=== PATIENT | female | born 1980 | race Caucasian/White ===

== ENCOUNTER 2019-06-21 20:07 | Inpatient (IN) | payer SELFPAY ==
[2019-06-21 20:12] VITALS: BP 110/71; PULSE 112; RESP 18; TEMP 36.7; O2SAT 99; BMI 22.3
--- NOTE | 2019-06-21 20:28 | W.ED.ABDPA2 ---
HPI - Abdominal Pain General: Chief Complaint: Abdominal Pain Stated Complaint: lower left abd pain Time Seen by Provider: 06/21/19 20:24 Source: patient Mode of arrival: ambulatory Limitations: no limitations History of Present Illness: HPI narrative: 38-year-old female who states she has been having abdominal pain for the last month. States pain is sharp in nature and rates it a 9 out of 10. Her pain is in her left lower quadrant. She denies any vaginal bleeding. Patient denies any worsening or improving factors. MD elicited complaint: abdominal pain Onset (ago): day(s) Pain Consistency: constant Location: LLQ Severity: severe Quality: stabbing Radiation: none Migration to: no migration Exacerbating factors: nothing Relieving factors: nothing Associated Symptoms: Denies chills, diarrhea, dysuria, fever(s), nausea and vomiting Related Data: Date of Last Menstrual Period: 06/07/19 Review of Systems Const: Denies: fever, chills, body aches or change in appetite Eyes: Denies: blurry vision or eye discomfort ENMT: Denies: throat pain or dental pain Card: Denies: chest pain Resp: Denies: shortness of breath GI: Reports: abdominal pain; Denies: nausea, vomiting or diarrhea : Denies: painful urination Musc: Denies: neck pain or back pain Skin/Breast: Denies: rash Neuro: Denies: headache Psych: Denies: depression Herbert/Lymph: Denies: easy bruising All/Imm: Denies: hives PFSH ED PFSH: Social History Smoking and tobacco status: current every day smoker Female Reproductive History: Date of last menstrual period: 06/07/19 Physical Exam Const: COMMON NORMALS: no apparent distress, oriented x3 and healthy appearing HENMT: COMMON NORMALS: normocephalic and head/scalp atraumatic HEAD & SCALP: normocephalic and atraumatic Eye: COMMON NORMALS: PERRL and EOMs intact bilaterally PUPIL: Yes PERRL Neck/C-Spine: COMMON NORMALS: full ROM and supple Chest: COMMONS NORMALS: inspection of chest normal and palpation of chest normal Resp: COMMON NORMALS: normal respiratory effort, no retractions, no use of accessory muscles and clear to auscultation bilaterally AUSCULTATION: clear to auscultation bilaterally Cardio: COMMON NORMALS: regular rate, regular rhythm and no murmurs RATE: regular rate RHYTHM: regular rhythm GI: COMMON NORMALS: normal to inspection, nondistended, normoactive bowel sounds, non-tender and no masses PALPATION: Yes tender Details: LLQ Extremity: COMMON NORMALS: normal to inspection and full ROM Neuro: COMMON NORMALS: oriented x3, moves all extremities and no focal motor deficits Psych: COMMON NORMALS: mental status grossly normal, thought process normal and cooperative THOUGHT PROCESS: normal thought process Skin: COMMON NORMALS: no rashes or lesions noted and no wounds GENERAL SKIN EXAM: no rashes or lesions noted Course Vital Signs: Vital signs: Vital Signs Temperature 98.0 F 06/21/19 20:12 Pulse Rate 108 H 06/21/19 21:40 Respiratory Rate 16 06/21/19 21:40 Blood Pressure 108/94 06/21/19 21:40 Pulse Oximetry 95 06/21/19 21:40 MDM - Abdominal Pain MDM Narrative: Medical decision making narrative: Patient presents with large kidney stone affecting left kidney. I spoke to Dr. You about kidney stone and he will admit. Patient's pain is much improved. Patient does have a cystitis as well and will treat with Rocephin. Lab Data: Labs: Lab Results 06/21/19 06/21/19 06/21/19 Range/Units 20:26 20:26 20:26 WBC 12.8 H (4.0-10.0) 10^3/ uL RBC 5.27 (4.1-5.3) 10^6/u L Hgb 13.2 (11.5-15.3) g/dL Hct 44.3 (37.0-47.0) % MCV 84.1 (81-99) fL MCH 25.0 L (28.0-34.0) pg MCHC 29.8 L (30.0-36.0) g/dL RDW 14.9 (12.1-15.1) % Plt Count 389 (130-400) 10^3/c mm MPV 10.9 H (7.4-10.4) fL Neut % (Auto) 72.7 % Lymph % (Auto) 19.1 % [place] % (Auto) 4.0 % Eos % (Auto) 2.6 % Baso % (Auto) 1.1 % Neut # (Auto) 9.3 H (1.8-7.7) 10^3/u L Lymph # (Auto) 2.5 (0.8-4.8) 10^3/u L [place] # (Auto) 0.5 (0.2-0.9) 10^3/u L Eos # (Auto) 0.3 (0.0-0.8) 10^3/u L Baso # (Auto) 0.1 (0.0-0.1) 10^3/u L Nucleated RBC % (a uto) 0 % Nucleated RBCs # 0.0 /100WBC Sodium 134 L (136-145) mmol/L Potassium 4.5 (3.5-5.1) mmol/L Chloride 99 (98-107) mmol/L Carbon Dioxide 22 (22-29) mmol/L Anion Gap 17.5 (5-19) BUN 13 (6-20) mg/dL Creatinine 1.0 H (0.5-0.9) mg/dL GFR Calculation 62.1 L (90-130) mL/min Glucose 164 H (65-115) mg/dL Calculated Osmolal ity 278 L (285-295) mOsm/k g Calcium 10.1 (8.5-10.5) mg/dL Total Bilirubin 0.4 (0.15-1.2) mg/dL AST 57 H (0-32) U/L ALT 297 H (0-33) U/L Alkaline Phosphata se 78 (35-105) IU/L Total Protein 8.0 (6.6-8.7) g/dL Albumin 4.1 (3.5-5.2) g/dL Globulin 3.9 (1.3-4.6) g/dL Lipase 28 (13-60) U/L Ser , Colleen i-Qnt 0.50 mIU/mL Urine Color (Yellow) Urine Appearance (CLEAR) Urine pH (5-7) Ur Specific Gravit y (1.005-1.030) Urine Protein (Negative) Urine Glucose (UA) (Normal) Urine Ketones (Negative) Urine Blood (Negative) Urine Nitrate (Negative) Urine Bilirubin (NEGATIVE) Prot Sulfosalicyli c Acd (Negative) Urine Urobilinogen (Negative) mg/dL Ur Leukocyte Amparo ase (Negative) Urine RBC (0-2) /hpf Urine WBC (0-5) /hpf Ur Squamous Epith Cells (0-5) Urine Bacteria (NONE) 06/21/19 Range/Units 21:35 WBC (4.0-10.0) 10^3/ uL RBC (4.1-5.3) 10^6/u L Hgb (11.5-15.3) g/dL Hct (37.0-47.0) % MCV (81-99) fL MCH (28.0-34.0) pg MCHC (30.0-36.0) g/dL RDW (12.1-15.1) % Plt Count (130-400) 10^3/c mm MPV (7.4-10.4) fL Neut % (Auto) % Lymph % (Auto) % [place] % (Auto) % Eos % (Auto) % Baso % (Auto) % Neut # (Auto) (1.8-7.7) 10^3/u L Lymph # (Auto) (0.8-4.8) 10^3/u L [place] # (Auto) (0.2-0.9) 10^3/u L Eos # (Auto) (0.0-0.8) 10^3/u L Baso # (Auto) (0.0-0.1) 10^3/u L Nucleated RBC % (a uto) % Nucleated RBCs # /100WBC Sodium (136-145) mmol/L Potassium (3.5-5.1) mmol/L Chloride (98-107) mmol/L Carbon Dioxide (22-29) mmol/L Anion Gap (5-19) BUN (6-20) mg/dL Creatinine (0.5-0.9) mg/dL GFR Calculation (90-130) mL/min Glucose (65-115) mg/dL Calculated Osmolal ity (285-295) mOsm/k g Calcium (8.5-10.5) mg/dL Total Bilirubin (0.15-1.2) mg/dL AST (0-32) U/L ALT (0-33) U/L Alkaline Phosphata se (35-105) IU/L Total Protein (6.6-8.7) g/dL Albumin (3.5-5.2) g/dL Globulin (1.3-4.6) g/dL Lipase (13-60) U/L Ser , Colleen i-Qnt mIU/mL Urine Color Straw (Yellow) Urine Appearance Cloudy (CLEAR) Urine pH 9 H (5-7) Ur Specific Gravit y 1.010 (1.005-1.030) Urine Protein Neg (Negative) Urine Glucose (UA) Norm (Normal) Urine Ketones Negative (Negative) Urine Blood 2+ H (Negative) Urine Nitrate Positive H (Negative) Urine Bilirubin Neg (NEGATIVE) Prot Sulfosalicyli c Acd Positive (Negative) Urine Urobilinogen Norm (Negative) mg/dL Ur Leukocyte Amparo ase 2+ H (Negative) Urine RBC 5-10 H (0-2) /hpf Urine WBC Too numerous to c nt H (0-5) /hpf Ur Squamous Epith Cells 5-10 H (0-5) Urine Bacteria 2+ H (NONE) Imaging Data ^: CT Abd/Pel: Radiologist's impression: [place] [address] CT Scan Report Signed Patient: Kalani Son Unit #: [id number] : [id number] Age/Sex: 38 / F ADM Date: 06/21/19 Loc: ER Room/Bed: Attending Dr: Ordering Provider/Ordering MD: Jacky Colbert MD Date of Service: 06/21/19 Procedure(s): CT abdomen pelvis w con* [id number] Accession Number(s): [id number] Report Number: [id number] PROCEDURE INFORMATION: Exam: CT Abdomen And Pelvis With Contrast Exam date and time: 06/21/2019 8:39 PM Age: 38 years old Clinical indication: Abdominal pain; Localized; Left lower quadrant (llq); Patient HX: C/O llq pain x months - worsening tonight - HX of ovarian cysts; Additional info: Abd pain TECHNIQUE: Imaging protocol: Computed tomography of the abdomen and pelvis with intravenous contrast. Total DLP: 521.77 mGy-cm Radiation optimization: All CT scans at this facility use at least one of these dose optimization techniques: automated exposure control; mA and/or kV adjustment per patient size (includes targeted exams where dose is matched to clinical indication); or iterative reconstruction. Contrast material: OMNI 300; Contrast volume: 95 ml; Contrast route: 20G; COMPARISON: No relevant prior studies available. FINDINGS: Lungs: Limited assessment lung bases without evidence for active cardiopulmonary process. Liver: Unremarkable. No mass. Gallbladder and bile ducts: Normal. No calcified stones. No ductal dilation. Pancreas: Normal. No ductal dilation. Spleen: Normal. No splenomegaly. Adrenals: Normal. No mass. Kidneys and ureters: Large left ureteropelvic junction stone measuring 16 mm x 7 mm x 8 mm. Duplex left renal collecting system with the stone positioned to result in partial obstruction of both the superior and inferior pole moiety. Resulting mild pelvocaliectasis of both the superior and inferior pole moiety. Right kidney without nephrolithiasis. No visible ureterolithiasis. No visible bladder stone. Stomach and bowel: Nonobstructive bowel pattern. No visible evidence of diverticulitis or significant diverticulosis coli. No visible adynamic or reactive ileus. Appendix: No evidence of appendicitis. Intraperitoneal space: Tiny amount of free fluid in the cul-de-sac believed physiologic. Doubt of clinical significance. Vasculature: The abdominal aorta is nonaneurysmal. Lymph nodes: No evidence for mesenteritis/panniculitis or mesenteric lymphadenitis/lymphadenopathy. Bladder: See Kidneys and ureters finding. Reproductive: Unremarkable as visualized. Bones/joints: Unremarkable. No acute fracture. Soft tissues: Unremarkable. CT/CT abdomen pelvis w con* [id number] IMPRESSION: 1. Large left ureteropelvic junction stone measuring 16 mm x 7 mm x 8 mm resulting in mild pelvicaliectasis of both the superior and inferior pole moiety complex in the left renal duplex collecting system. 2. Tiny amount of free fluid in the cul-de-sac that is considered physiologic. 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
[2019-06-21 20:34] LABS: Basophils # 0.1 10^3/uL (0.0-0.1); Basophils % 1.1 %; Eosinophils # 0.3 10^3/uL (0.0-0.8); Eosinophils % 2.6 %; Hematocrit 44.3 % (37.0-47.0); Hemoglobin 13.2 g/dL (11.5-15.3); Lymphocytes # 2.5 10^3/uL (0.8-4.8); Lymphocytes % 19.1 %; Mean Corpuscular HGB Conc 29.8 g/dL (30.0-36.0); Mean Corpuscular Volume 84.1 fL (81-99); Mean Platelet Volume 10.9 fL (7.4-10.4); Monocytes # 0.5 10^3/uL (0.2-0.9); Neutrophils # 9.3 10^3/uL (1.8-7.7); Neutrophils % 72.7 %; Nucleated Red Blood Cells % 0 %; Platelet Count 389 10^3/cmm (130-400); Red Blood Count 5.27 10^6/uL (4.1-5.3); Red Cell Distribution Width 14.9 % (12.1-15.1); White Blood Count 12.8 10^3/uL (4.0-10.0)
[2019-06-21] MEDS: morphine 4 mg/mL SDV 1 mL IVP ×2 (20:52→22:07)
[2019-06-21] MEDS: LORazepam 2 mg/mL INJ 1 mL 1 MG IVP (20:53)
[2019-06-21 20:55] LABS: Alanine Aminotransferase 297 U/L (0-33); Albumin Level 4.1 g/dL (3.5-5.2); Alkaline Phosphatase 78 IU/L (35-105); Anion Gap 17.5 (5-19); Aspartate Amino Transferase 57 U/L (0-32); Blood Urea Nitrogen 13 mg/dL (6-20); Calcium 10.1 mg/dL (8.5-10.5); Carbon Dioxide 22 mmol/L (22-29); Chloride 99 mmol/L (98-107); Globulin 3.9 g/dL (1.3-4.6); Glomerular Filtration Rate 62.1 mL/min (90-130); Glucose 164 mg/dL (65-115); Lipase 28 U/L (13-60); Osmolality Calculated 278 mOsm/kg (285-295); Potassium 4.5 mmol/L (3.5-5.1); Sodium 134 mmol/L (136-145); Total Bilirubin 0.4 mg/dL (0.15-1.2)
[2019-06-21] MEDS: iohexol 300 mg/mL 100 mL Btl IV (21:20)
[2019-06-21 21:40] VITALS: BP 108/94; PULSE 108; RESP 16; O2SAT 95
[2019-06-21 22:04] LABS: Glucose Urine UA Norm (Normal); Protein Urine Neg (Negative); Urine Color Straw (Yellow); pH Urine 9 (5-7)
[2019-06-21 22:05] LABS: Bilirubin Urine Neg (NEGATIVE); Blood Urine 2+ (Negative); Ketones Urine Negative (Negative); Leukocyte Esterase Urine 2+ (Negative); Nitrate Urine Positive (Negative); Sulfosalicylic Acid Urine Positive (Negative); Urobilinogen Urine Norm (Negative)
[2019-06-21 22:06] LABS: Add Urine Microscopic? YES; Urine Appearance Cloudy (CLEAR); WBC Urine TOO NUMEROUS TO CNT /hpf (0-5)
[2019-06-21 22:07] VITALS: RESP 16
[2019-06-21 22:07] LABS: Add Urine Culture? Yes; Bacteria Urine 2+
[2019-06-21] MEDS: HYDROcodone-acetaminophen 7.5-325 mg Tablet 2 TAB PO (22:12)
--- NOTE | 2019-06-21 22:13 | PC.NURSE ---
per orders 2 Hydrocodone/Tyleno 7.5mg were given to the pt. to take at home
--- NOTE | 2019-06-21 22:27 | PM.HP ---
Providers/Chief Complaint Chief Complaint: lower left abd pain History of Present Illness Kalani Son is a 38 year old female admitted due to progressive left flank yesterday pain from a large (1.6x.8cm) LUPJ stone with mild obstructive changes. While she had no clinical picture of sepsis UA was positive for WBC and nitrites. Admitted for IV antibiotics with option for stent placement. Complicated by recent Meth usage for pain. Originally before her urinalysis was available she was planned to be discharged home with conservative management but once the urinary tract infection was identified plan was changed to admission. She reports that she has had off and on at times severe pain in the left flank since probably late February. No prior stones. Has had a history of urinary tract infections. Review of Systems Const: Denies: fever or chills Card: Denies: chest pain or palpitations Resp: Denies: shortness of breath or productive cough GI: Reports: abdominal pain, nausea and vomiting : Reports: other (left flank pain) Neuro: Denies: headache, numbness in extremities, weakness in extremities or changes in sensation Psych: Reports: anxiety and depression Endo: Denies: excessive urination or excessive thirst Herbert/Lymph: Denies: easy bruising or easy bleeding All/Imm: Denies: hives or throat swelling Medications/Allergies Allergies Allergy/AdvReac Type Severity Reaction Status Date / Time No Known Allergies Allergy Verified 06/21/19 20:30 PFSH Acute PFSH: Medical History Substance abuse Social History Smoking and tobacco status: current every day smoker Female Reproductive History: Date of last menstrual period: 06/07/19 Vitals/I&O/Wt Last Vital Signs Temp 98.0 F 06/21/19 20:12 Pulse 108 H 06/21/19 21:40 Resp 16 06/21/19 22:07 BP 108/94 06/21/19 21:40 Pulse Ox 95 06/21/19 21:40 Weight last 48 hrs Weight 130 lb Physical Exam Const: COMMON NORMALS: alert and well nourished GENERAL APPEARANCE: well kempt and well developed ORIENTATION/CONSCIOUSNESS: not confused HENMT: HEAD & SCALP: normocephalic and atraumatic Eye: COMMON NORMALS: conjunctivae normal and no scleral icterus Neck/C-Spine: COMMON NORMALS: full ROM GENERAL: Yes normal visual inspection Resp: COMMON NORMALS: normal respiratory effort EFFORT & INSPECTION: No labored and No actively coughing OTHER: No wheezes Cardio: RATE: regular rate RHYTHM: regular rhythm : BLADDER/KIDNEY EXAM: Yes bladder abnormal to palpation (Tender, nondistended) and Yes CVA tenderness on the left OTHER: Normal external female genitalia. Normal urethra urethral meatus. No obvious vaginal discharge or masses. Extremity: COMMON NORMALS: no clubbing, cyanosis or edema Neuro: COMMON NORMALS: no focal motor deficits SENSORIUM/ORIENTATION: Yes alert Psych: COMMON NORMALS: mental status grossly normal APPEARANCE: Yes grossly normal and Yes well kempt ATTITUDE: Yes engaged Skin: COMMON NORMALS: no jaundice GENERAL SKIN EXAM: no rashes or lesions noted Data : 06/22/19 06:16 06/22/19 06:16 Micro: UA: TNTC WBC CT Abd/Pel: I personally reviewed and interpreted this imaging study as follows: (See HPI) A&P Assessment and plan (1) Calculus of kidney: Status: Acute (2) Cystitis: Too numerous to count white cells, positive nitrites, some lower urinary tract symptoms but no septic symptoms. Status: Acute Attestations Medical Necessity Statement*: Admitted for management of severe pain, obstructing left stone, UTI with concern for potential of development of obstructive pyelonephritis. Expect that she will require urgent stenting on 06/22/2019 Coding Level of Care Code Acute Manager Field Service for [facility] Fwd Exam Comprehensive Diagnoses Calculus of kidney N20.0 Cystitis N30.90
--- NOTE | 2019-06-21 22:30 | PC.NURSE ---
pt. given a sandwitch tray for dinner
[2019-06-21 22:31] VITALS: BP 119/89; PULSE 115; RESP 16; O2SAT 95
[2019-06-21] MEDS: cefTRIAXone 1,000 MG in sodium chloride 0.9% (plus) 50 ML 100 MG IV (22:38)
[2019-06-21 23:06] VITALS: BP 115/74; PULSE 94; RESP 20; TEMP 36.5; O2SAT 96
[2019-06-21] MEDS: sodium chloride 0.9% 1,000 ML 100 ML IV (23:18)
[2019-06-22] VITALS (21 sets, daily range): BP systolic 94–110; BP diastolic 58–83; PULSE 70–98; RESP 12–20; TEMP 36.1–37.4; O2SAT 95–100
--- NOTE | 2019-06-22 | SCC_ITS ---
Procedure Done: 1. Cystoscopy, left retrograde ureteropyelogram 2. Left ureteral stent placement 20.8 seconds of fluoroscopic guidance, for a cumulative dose of 3.86 mGy, was provided to Dr. You by the radiology department. C-arm images of the abdomen were saved for the patient's permanent record. [facility]
--- NOTE | 2019-06-22 02:10 | PC.NURSE ---
pt made npo at midnight.
[2019-06-22 06:25] LABS: Basophils # 0.1 10^3/uL (0.0-0.1); Basophils % 1.1 %; Eosinophils # 0.4 10^3/uL (0.0-0.8); Eosinophils % 3.5 %; Hematocrit 41.8 % (37.0-47.0); Hemoglobin 12.3 g/dL (11.5-15.3); Lymphocytes # 2.3 10^3/uL (0.8-4.8); Lymphocytes % 20.4 %; Mean Corpuscular HGB Conc 29.4 g/dL (30.0-36.0); Mean Corpuscular Hemoglobin 24.5 pg (28.0-34.0); Mean Corpuscular Volume 83.3 fL (81-99); Mean Platelet Volume 10.9 fL (7.4-10.4); Monocytes # 0.9 10^3/uL (0.2-0.9); Monocytes % 7.5 %; Neutrophils # 7.6 10^3/uL (1.8-7.7); Neutrophils % 67.1 %; Nucleated Red Blood Cells % 0 %; Platelet Count 357 10^3/cmm (130-400); Red Blood Count 5.02 10^6/uL (4.1-5.3); Red Cell Distribution Width 14.9 % (12.1-15.1); White Blood Count 11.3 10^3/uL (4.0-10.0)
[2019-06-22 06:49] LABS: Anion Gap 14.5 (5-19); Blood Urea Nitrogen 12 mg/dL (6-20); Calcium 9.3 mg/dL (8.5-10.5); Carbon Dioxide 23 mmol/L (22-29); Chloride 104 mmol/L (98-107); Glomerular Filtration Rate 80.3 mL/min (90-130); Glucose 101 mg/dL (65-115); Osmolality Calculated 280 mOsm/kg (285-295); Potassium 4.5 mmol/L (3.5-5.1); Sodium 137 mmol/L (136-145)
[2019-06-22] MEDS: sodium chloride 0.9% 1,000 ML 100 ML IV ×2 (07:26→19:55)
[2019-06-22] MEDS: morphine 4 mg/mL SDV 1 mL IVP ×3 (07:42→22:51)
--- NOTE | 2019-06-22 07:48 | P.PN_ITS ---
Subjective Subjective: Interval history: Hospital day #2 for obstructing left renal calculus invasive urinary tract infection. No fever or chills overnight. No septic symptoms. Still having significant pain and discomfort. Reviewed in detail with her the findings and the reason for consideration for intervention with stent and then delayed ESWL. Primary concern is the potential for development of obstructive pyelonephritis. After detailed explanation we elected to proceed with stent placement today on the left as time available this afternoon. Vitals/I&O/Wt Last Vital Signs Temp 98.0 F 06/22/19 04:00 Pulse 88 06/22/19 04:00 Resp 18 06/22/19 07:42 BP 110/69 06/22/19 04:00 Pulse Ox 95 06/22/19 07:42 06/21/19 06/22/19 06/22/19 22:59 06:59 14:59 Intake Total 120 / 120 813.333 / 813.333 Output Total 270 / 270 Balance -150 / -150 813.333 / 813.333 Weight last 48 hrs Weight 130 lb Physical Exam Const: COMMON NORMALS: alert and well nourished GENERAL APPEARANCE: well kempt and well developed ORIENTATION/CONSCIOUSNESS: not confused Neck/C-Spine: COMMON NORMALS: full ROM GENERAL: Yes normal visual inspection Resp: COMMON NORMALS: normal respiratory effort EFFORT & INSPECTION: No labored and No actively coughing GI: COMMON NORMALS: soft to palpation INSPECTION: Yes normal to inspection PALPATION: Yes soft, Yes tender and No guarding Extremity: COMMON NORMALS: no clubbing, cyanosis or edema Neuro: SENSORIUM/ORIENTATION: Yes alert Psych: COMMON NORMALS: mental status grossly normal APPEARANCE: Yes grossly normal and Yes well kempt ATTITUDE: Yes calm and Yes engaged Skin: COMMON NORMALS: no rashes or lesions noted GENERAL SKIN EXAM: no rashes or lesions noted Data : 06/22/19 06:16 06/22/19 06:16 A&P Assessment and plan (1) Calculus of kidney: Symptomatic obstructing large left renal calculus invasive UTI but no evidence of obstructive pyelonephritis as of yet. We will plan for cystoscopy and stent placement later today. Status: Acute (2) Cystitis: Status: Acute Attestations Medical Necessity Statement*: Requires inpatient care for UTI and obstructing stone. Plan for urgent stent placement today. If does well from an infectious perspective postoperatively would look to discharge on 06/23/2019. 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
--- NOTE | 2019-06-22 09:59 | PC.CHAP ---
Pastoral Care Encounter/Spiritual Assessment Type of Contact [] Declined mica washer gluer visit [] Patient/Family/Request visit [] Outpatient visit [] Follow-up visit [] Physician referral [] Code/Alert [x] Routine visit [] Staff referral [] Actively dying [x] Patient sleeping [] Family support [] [] Out of room [] Palliative care [] [] Receiving care in room [] Pre-surgical visit [] Trauma [] Long length of stay [] ICU visit [] Other: Relational/Emotional Strength [] Patient feels connected with others/family/visitors/staff [] Distress [] Loneliness/isolation [] Abandonment Spirituality of Patient [] Person of Felicia [] Attends Pentecostalism of their Felicia [] Believes in Prayer [] Reads Bible or Catholic materials [] There are Spiritual issues to be addressed Center Machine 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 Interventions [] Prayer [] Active listening [] Non-anxious presence [] Spiritual/emotional support [] Crisis/trauma care [] Spiritual counseling [] Bereavement support [] Provided bereavement packet [] Provided Bible/devotional materials [] Provided toy/stuffed animal, coloring book to patient or family member [] Provided Communion [] Anointing/[place] [] Salvation [x] Completed spiritual assessment [] Other: Impact on Illness or Injury [] Angry [] Fearful [] Anxious [] Often cries [] Exhaustion [] Unable to work [] Unable to attend adventism [] Unable to walk/stand [] Unable to read [] Unable to drive [] Unable to eat/drink [] Unable to sleep [] Unable to be with family [] Patient intubated [] Other: Summary [place] patient a Daily Bread, and small cross for comfort Time spent with patient
--- NOTE | 2019-06-22 11:20 | PC.NURSE ---
patient taken to OR
--- NOTE | 2019-06-22 11:32 | P.ANESASSM_ITS ---
Pre-Anesthetic Assessment Pre-Anesthetic Assessment: Height/Weight: Height 1.63 m Weight 58.967 kg Temp Pulse Resp BP Pulse Ox 98.3 F 77 18 103/70 98 06/22/19 08:00 06/22/19 08:00 06/22/19 08:00 06/22/19 08:00 06/22/19 08:00 Preop Diagnosis: Renal calculi Proposed Procedure: Operation Date: 06/22/19 15:20 Proposed Procedures p Cystoscopy(Not Applicable) - Hardy You MD s Ureteral Stent Placement(Left) - Hardy You MD s Retrograde Pyelogram(Left) - Hardy You MD Was Beta Mariella taken within 24 hours: N/A Last intake: Intake Last Liquid Date 06/22/19 Last Liquid Time 09:00 Last Solid Date 06/20/19 Last Solid Time 19:00 Social: Social History: Tobacco (1/2pk) Exam: Pre-Anes Outpt Exam: alert, oriented x 3, clear to auscultation bilaterally and regular rate & rhythm Airway: Submandibular: WNL Cervical ROM: WNL MP: 3 Dentition: Full History/ROS: No significant history except as noted and No significant complaints Pulmonary: Pulmonary: None reported CV/HEM: CV/HEM: None reported : : UTI Comments: kidney stone Hepatic: Hepatic: None reported GI: GI: None reported Metabolic: Metabolic: None reported Musc/skel: Musc/skel: None reported Neuropsych: Neuropsych: None reported Anesthetic Plan: ASA status: 2E Meds/Allergies Current Medications: Current Medications Generic Name Dose Route Start Last Admin Trade Name Freq PRN Reason Stop Dose Admin Sodium Chloride 1,000 mls @ 100 m ls/hr 06/21/19 23:01 06/22/19 07:26 Sodium Chloride 0.9% IV 100 mls/hr .Q10H MIRIAM Administration Morphine Sulfate 4 mg 06/21/19 23:01 06/22/19 07:42 Morphine IVP 4 mg Q4H PRN Administration SEVERE PAIN PFSH Anesthesia PFSH: Medical History Substance abuse Social History Smoking and tobacco status: current every day smoker Female Reproductive History: Date of last menstrual period: 06/07/19 Data Anesthesia CBC & Chem 7: 06/22/19 06:16 06/22/19 06:16 Other Labs: Laboratory Results - last 48 hr 06/21/19 06/21/19 06/21/19 20:26 20:26 20:26 WBC 12.8 H RBC 5.27 Hgb 13.2 Hct 44.3 MCV 84.1 MCH 25.0 L MCHC 29.8 L RDW 14.9 Plt Count 389 MPV 10.9 H Neut % (Auto) 72.7 Lymph % (Auto) 19.1 [place] % (Auto) 4.0 Eos % (Auto) 2.6 Baso % (Auto) 1.1 Neut # (Auto) 9.3 H Lymph # (Auto) 2.5 [place] # (Auto) 0.5 Eos # (Auto) 0.3 Baso # (Auto) 0.1 Nucleated RBC % (auto) 0 Nucleated RBCs # 0.0 Sodium 134 L Potassium 4.5 Chloride 99 Carbon Dioxide 22 Anion Gap 17.5 BUN 13 Creatinine 1.0 H GFR Calculation 62.1 L Glucose 164 H Calculated Osmolality 278 L Calcium 10.1 Total Bilirubin 0.4 AST 57 H ALT 297 H Alkaline Phosphatase 78 Total Protein 8.0 Albumin 4.1 Globulin 3.9 Lipase 28 Ser , Semi-Qnt 0.50 Urine Color Urine Appearance Urine pH Ur Specific [place] Urine Protein Urine Glucose (UA) Urine Ketones Urine Blood Urine Nitrate Urine Bilirubin Prot Sulfosalicylic Acd Urine Urobilinogen Ur Leukocyte Esterase Urine RBC Urine WBC Ur Squamous Epith Cells Urine Bacteria 06/21/19 06/22/19 06/22/19 21:35 06:16 06:16 WBC 11.3 H RBC 5.02 Hgb 12.3 Hct 41.8 MCV 83.3 MCH 24.5 L MCHC 29.4 L RDW 14.9 Plt Count 357 MPV 10.9 H Neut % (Auto) 67.1 Lymph % (Auto) 20.4 [place] % (Auto) 7.5 Eos % (Auto) 3.5 Baso % (Auto) 1.1 Neut # (Auto) 7.6 Lymph # (Auto) 2.3 [place] # (Auto) 0.9 Eos # (Auto) 0.4 Baso # (Auto) 0.1 Nucleated RBC % (auto) 0 Nucleated RBCs # 0.0 Sodium 137 Potassium 4.5 Chloride 104 Carbon Dioxide 23 Anion Gap 14.5 BUN 12 Creatinine 0.8 GFR Calculation 80.3 L Glucose 101 Calculated Osmolality 280 L Calcium 9.3 Total Bilirubin AST ALT Alkaline Phosphatase Total Protein Albumin Globulin Lipase Ser , Semi-Qnt Urine Color Straw Urine Appearance Cloudy Urine pH 9 H Ur Specific [place] 1.010 Urine Protein Neg Urine Glucose (UA) Norm Urine Ketones Negative Urine Blood 2+ H Urine Nitrate Positive H Urine Bilirubin Neg Prot Sulfosalicylic Acd Positive Urine Urobilinogen Norm Ur Leukocyte Esterase 2+ H Urine RBC 5-10 H Urine WBC Too numerous to cnt H Ur Squamous Epith Cells 5-10 H Urine Bacteria 2+ H Cardiac Studies: No Data to Display
--- NOTE | 2019-06-22 11:41 | SC_ITS ---
WS: [id number] INTRAOPERATIVE TECHNIQUE: 2 Spot fluoroscopic images for intraoperative purposes. FLUOROSCOPY TIME: 20.8 seconds CLINICAL INFORMATION: stent COMPARISON: None. FINDINGS: Partially visualized deployed proximal double-J ureteral stent SC/C-arm [place] for Urology IMPRESSION: Images obtained for intraoperative purposes.
[2019-06-22] MEDS: sodium chloride 0.9% 1,000 ML 30 ML IV (11:50)
--- NOTE | 2019-06-22 11:52 | PC.NURSE ---
PT OFF UNIT, IN OR
--- NOTE | 2019-06-22 12:38 | PM.OP ---
Operative Report Date of procedure: June 22, 2019 Pre-op Diagnosis: Left renal calculus with obstruction/UTI Post-op diagnosis: same Procedure Done: 1. Cystoscopy, left retrograde ureteropyelogram 2. Left ureteral stent placement (7 E[place]an by 24 cm double-pigtail without string) Pathology: none sent Surgeon: Avelino Anesthesia: General Complications: None Findings: Stone in the expected position. No evidence of filling defect within the left ureter. Stent placed without difficulty Condition: stable Brief History: 38-year-old white female who was admitted last night with a complaint of symptomatic left renal colic from a large left proximal ureteral stone causing mild obstruction. Complicated by pyuria consistent with UTI. Recommended urgent stent placement. Procedure: After routine preoperative evaluation examination and examination and obtaining of informed consent she was taken the operating suite on 06/22/2019 where general anesthesia was administered without difficulty. Prepped and draped in usual sterile fashion in dorsolithotomy position pain careful attention to avoiding pressure points. 21 E[place]rean cystoscope with 30 degree lens was introduced to the urethral meatus and advanced into the bladder under videoscopy. Bladder was systematically examined showed some mild inflammatory changes but nothing severe. No stone in the bladder An 8 [place]an cone-tipped catheter was intubated in the left ureteral orifice and a low-pressure left retrograde ureteropyelogram revealed normal course and caliber of the ureter and the filling defect consistent with a stone seen on previous imaging. Proximal calyceal dilation. Flexible guidewire was easily advanced up the left ureter bypassing the stone and a 7 E[place]an by 24 cm double-pigtail stent was advanced over the guidewire through the cystoscope into appropriate position as confirmed via fluoroscopy. The stent was confirmed to be draining at the completion of the procedure with purulent urine drained. Tolerated procedure well without complications and was awakened in the operating room and returned to recovery in stable condition. PLANS: 1. Treat symptoms. Continue antibiotics. Reassess for possible discharge tomorrow with anticipated ESWL after full recovery from infection.
[2019-06-22] MEDS: iohexol 300 mg/mL 50 mL Btl 7 ML VAGINAL (12:51)
--- NOTE | 2019-06-22 17:53 | PC.NURSE ---
PT STATED, I WANT TO GO HOME ! I TOLD HER THAT I WOULD CALL DR. TEE AND TALK TO HIM ABOUT HER BEING DISCHARGED. I CALLED DR. TEE AND HE WANTED ME TO EDUCATE THE PT ON THE REASON FOR KEEPING HER OVERNIGHT POST PROCEDURE, TO RULE OUT AN INFECTION R/T ELEVATED WBC. I REENTERED THE PTS ROOM AND EDUCATED HER TO WHAT DR. TEE DISCUSSED WITH ME. SHE AGREED TO STAY. NO FURTHER COMPLAINTS FROM THE PT AT THIS TIME.
[2019-06-23] VITALS: BP 88/59; PULSE 88; RESP 20; TEMP 36.5; O2SAT 99
[2019-06-23] MEDS: cefTRIAXone 1,000 MG in sodium chloride 0.9% (plus) 50 ML 100 MG IV (00:28)
[2019-06-23 00:30] VITALS: BP 102/68; PULSE 94; RESP 18; TEMP 37.2; O2SAT 99
[2019-06-23 02:46] VITALS: RESP 18
[2019-06-23] MEDS: morphine 4 mg/mL SDV 1 mL IVP (02:46)
[2019-06-23 04:00] VITALS: BP 107/64; PULSE 82; RESP 18; TEMP 36.9; O2SAT 99
[2019-06-23] MEDS: sodium chloride 0.9% 1,000 ML 100 ML IV (04:29)
[2019-06-23 07:35] VITALS: BP 99/60; PULSE 93; RESP 16; TEMP 37.3; O2SAT 98
--- NOTE | 2019-06-23 09:04 | PM.DCS ---
Discharge Providers Date of Admission: 06/21/19 22:08 Date of Discharge: June 23, 2019 Attending Provider at Admission: Hardy You MD Attending Provider at Discharge: Hardy You MD Diagnoses at Discharge Discharge Diagnosis (1) Calculus of kidney: Status: Acute Problem details: Large UPJ/renal pelvic 1.7 cm obstructing renal calculus complicated by UTI (2) Cystitis: Status: Acute Reason for Visit Reason for Visit: Reason For Visit: lower left abd pain Hospital Course Discharge Summary: Admitted through the emergency department for refractory left renal colicky pain secondary to partial staghorn calculus at the UPJ causing obstruction and complicated by evidence of urinary tract infection. No overt sepsis. Was taken to the operating room for cystoscopy and left ureteral stent placement and recovered well. Discharged on oral Levaquin on postoperative day #[address] with tentative plans for ESWL in approximately 1 week. Physical Exam Const: COMMON NORMALS: no apparent distress, alert and well nourished GENERAL APPEARANCE: well kempt and well developed ORIENTATION/CONSCIOUSNESS: not confused Neck/C-Spine: COMMON NORMALS: full ROM Resp: COMMON NORMALS: normal respiratory effort EFFORT & INSPECTION: No labored and No actively coughing Extremity: COMMON NORMALS: no clubbing, cyanosis or edema Neuro: COMMON NORMALS: no focal motor deficits SENSORIUM/ORIENTATION: Yes alert Psych: COMMON NORMALS: mental status grossly normal APPEARANCE: Yes grossly normal and Yes well kempt ATTITUDE: Yes engaged Discharge Data Data Completed and Pending: Completed Studies During Hospitalization Category Date Time Status CT abdomen pelvis w con* [id number] Urge nt Cat Scan 06/21/19 20:28 Completed Pending at discharge Category Date Time Status Urine Culture Sta t Lab 06/21/19 21:35 Received Vitals: Last Vital Signs Temp 99.1 F 06/23/19 07:35 Pulse 93 06/23/19 07:35 Resp 16 06/23/19 07:35 BP 99/60 06/23/19 07:35 Pulse Ox 98 06/23/19 07:35 Discharge Plan Discharge Patient Disposition: Home, Self-Care Condition: Stable Prescriptions: New Zofran 4 mg tablet 4 mg PO QID PRN (Reason: nausea and vomiting) Qty: 14 RF: 0 hydrocodone-acetaminophen 2.5-325 mg tablet 1 tab PO Q6H PRN (Reason: pain) Qty: 20 RF: 0 Levaquin 500 mg tablet 500 mg PO DAILY 14 Days Qty: 14 RF: 1 Discharge Orders: Discharge Order (Routine); Ordered 06/23/19 Ordered By: Hardy You Discharge Diet: Usual diet Discharge Activity: Resume usual activity Patient Instructions: Kidney Stones (ED) Activity Restrictions/Additional Instructions: 1. The stent will create urgency, frequency, blood in the urine, left flank pain. These are all normal. I expect that the symptoms will improve the longer you take the antibiotics. 2. We will make arrangements for shockwave therapy of the stone. I hope that will be next week, the week of the . Timing is subject to change given the virus concerns. Discharge Attestations Time Spent in Discharge Care*: greater than 30 min Quality Metrics Clinical Quality Measures During this hospital stay, did patient experience: None Coding Level of Care Code Acute Nipple Machine Operator for Chuyita Lira Diagnoses Calculus of kidney N20.0 Cystitis N30.90
--- NOTE | 2019-06-23 09:29 | PC.NURSE ---
patient given discharge instructions with paper scripts. patient verbalized understanding of instructions. patient's iv removed and covered with 2x2 and coban. patient taken to private vehicle via wheelchair by travel writer.
[2019-06-23 09:30] VITALS: BP 99/60; PULSE 93; RESP 16; TEMP 37.3; O2SAT 98
== END 2019-06-23 09:31 | disposition home or self-care (01) | DRG 660 ==
LOC: ER 22:09 → MEDSURG 22:39
PROVIDERS: Admitting Provider Urology; Emergency Provider Emergency Medicine; Visit Provider Urology
PROC: 0TJB8ZZ Inspection of Bladder, Via Natural or Artificial Opening Endoscopic (ICD-10-PCS; CPT 52000; principal; 2019-06-22 15:20)
PROC: 0T778DZ Dilation of Left Ureter with Intraluminal Device, Via Natural or Artificial Opening Endoscopic (ICD-10-PCS; CPT 50605; 2019-06-22 15:20)
DX: N20.0 Calculus of kidney (principal); N30.00 Acute cystitis without hematuria; Z87.440 Personal history of urinary (tract) infections
CPT/HCPCS: 12345; 36415; 74177; 76000; 80048; 80053; 81001; 83690; 84702; 85025; 87077; 87086; 87186; 96374; 96375; 99283; A9270; C2625; J0330; J0696; J1100; J2001; J2060; J2250; J2270; J2704; J3010; J3490; J7030; Q9967

== ENCOUNTER 2019-06-29 07:10 | Day surgery (SDC) | payer SELFPAY ==
[2019-06-26 11:25] VITALS: BMI 22.3
[2019-06-29] VITALS (12 sets, daily range): BP systolic 107–127; BP diastolic 75–98; PULSE 71–102; RESP 14–20; TEMP 36.3–36.7; O2SAT 98–100
--- NOTE | 2019-06-29 07:04 | XR_ITS ---
WS: [id number] ABDOMEN 1 VIEW(S) HISTORY: Preop ESWL left renal calculus COMPARISON: 06/22/2019 LEFT ureteral stent remains in good position. 19 mm calcification is adjacent to the proximal coil of the ureteral stent. No calcification along the course of the stent. Numerous pelvic phleboliths. No bone abnormality. XR/XR KUB [id number] IMPRESSION: 1. LEFT ureteral stent in good position. 2. 19 mm calcification remains adjacent to the proximal ureteral pigtail.
[2019-06-29 07:47] LABS: OR HCG Qualitative Urine Negative (Negative)
[2019-06-29] MEDS: sodium chloride 0.9% 1,000 ML 30 ML IV (07:51)
--- NOTE | 2019-06-29 07:51 | P.ANESASSM_ITS ---
Pre-Anesthetic Assessment Pre-Anesthetic Assessment: Height/Weight: Height 1.63 m Weight 58.967 kg Temp Pulse Resp BP Pulse Ox 98 F 102 H 16 127/98 99 06/29/19 07:41 06/29/19 07:41 06/29/19 07:41 06/29/19 07:41 06/29/19 07:41 Preop Diagnosis: Left renal calculus status post stenting for infection Proposed Procedure: Operation Date: 06/29/19 08:15 Proposed Procedures p EXTRACORPOREAL SHOCKWAVE LITHOTRIPSY LEFT RENAL CALCULUS POSSIBLE RETROGRADE PYELOGRAM 31113 [id number] MODIFIER 26 N20.1(Not Applicable) - Hardy You MD s LEFT RENAL CALCULUS POSS Retrograde Pyelogram(Left) - Hardy You MD Familial anesthetic complications: None Was Beta Mariella taken within 24 marcia rs: N/A Last intake: Intake 0030 (couple bites of a sandwich) Last Liquid Date 06/29/19 Last Liquid Time 04:45 Last Solid Date 06/29/19 Last Solid Time 00:30 Social: Social History: Tobacco and No alcohol Packs per day: 0.5 ppd Exam: Pre-Anes Outpt Exam: alert, oriented x 3, clear to auscultation bilaterally and regular rate & rhythm Airway: Cervical ROM: WNL MP: 3 Additional comments: missing Pulmonary: Pulmonary: None reported CV/HEM: CV/HEM: None reported : : None reported Hepatic: Hepatic: None reported GI: GI: None reported Metabolic: Metabolic: None reported Musc/skel: Musc/skel: None reported Neuropsych: Neuropsych: None reported Anesthetic Plan: ASA status: 2 Risk of > 500 ml blood loss (7ml/kg in children): No PFSH Anesthesia PFSH: Social History Smoking and tobacco status: current every day smoker Female Reproductive History: Date of last menstrual period: 06/07/19 Data Anesthesia Other Labs: Laboratory Results - last 48 hr 06/29/19 07:34 Urine HCG, Qual Negative Cardiac Studies: No Data to Display
[2019-06-29] MEDS: fentaNYL 50 mcg/mL INJ 2mL IVP (07:58)
[2019-06-29] MEDS: fentaNYL 50 mcg/mL INJ 2mL 100 MCG IVP (08:00)
--- NOTE | 2019-06-29 08:47 | P.HPUD_ITS ---
Surgery/Procedure H&P Update DATE OF PROCEDURE: June 29, 2019 DATE H&P PERFORMED: 06/21/19 H&P UPDATE INFORMATION: I have reviewed H&P completed within last 30 days, I have examined patient prior to procedure, No changes to prior documentation and H&P is in [facility] EMR on date indicated CHANGES TO PREVIOUS DOCUMENTATION: Stone is easily identified on preoperative KUB with stent in good position. PREOP DIAGNOSIS: Left renal calculus status post stenting for infection PLANNED PROCEDURE: Operation Date: 06/29/19 08:15 Proposed Procedures p EXTRACORPOREAL SHOCKWAVE LITHOTRIPSY LEFT RENAL CALCULUS POSSIBLE RETROGRADE PYELOGRAM 53642 [id number] MODIFIER 26 N20.1(Not Applicable) - Hardy You MD s LEFT RENAL CALCULUS POSS Retrograde Pyelogram(Left) - Hardy You MD
--- NOTE | 2019-06-29 08:50 | PM.OP ---
Operative Report Date of procedure: June 29, 2019 Pre-op Diagnosis: Left renal calculus status post stenting for infection Post-op diagnosis: same Procedure Done: 1. Extracorporeal shockwave lithotripsy to large partial staghorn left kidney Implants: Already has ureteral stent placed previously Pathology: none sent Surgeon: Avelino Cloth Roll Winder: Lithotripsy drinking water technician: Earnest Arnett Anesthesia: General Estimated blood loss: None Urine output: Not measured Complications: None Findings: 2500 shocks administered with excellent change Condition: stable Disposition: PACU Brief History: Kalani is a 38-year-old white female recently admitted to the hospital for left renal colicky symptoms and was found to have a partial staghorn calculus had migrated to the left UPJ causing obstruction and was further complicated by significant pyuria but no clear evidence of sepsis. She underwent ureteral stenting, antibiotic therapy as inpatient and continued at discharge and is being readmitted now to outpatient surgery for extracorporeal shockwave lithotripsy to the stone. We reviewed that the stone may require more than 1 treatment given the size. Procedure: After routine preoperative evaluation examination and obtaining of informed consent she was taken to the operating suite on 06/29/2019 where general anesthesia was administered without difficulty after appropriate timeout was performed, SCDs confirmed to be functioning, preoperative antibiotics administered, beta-vincent protocol confirmed. Positioned on the Dornier unit in supine position such that the stone was located at the focal point utilizing biplanar fluoroscopy. Shockwave was initiated and intensity of 1 and advanced intensity of 4 with a several minute pause after about 300 shocks. Rate was initiated at 60 and advanced to 90. Excellent change noted. Total of 2500 shocks administered. Awakened in the operating room and returned to the cover him in stable condition. PLANS: 1. Follow-up later this week with KUB and possible cystoscopy stent removal at that time.
--- NOTE | 2019-06-29 09:13 | SUR.OPER ---
0913-Patient is on oral antibiotic listed in home medications. No IV antibiotics administered in OR.
--- NOTE | 2019-06-29 09:59 | SUR.PHASEI ---
0957 PATIENT TO PACU AT THIS TIME FROM OR. RR EVEN AND UNLABORED. NO DISTRESS. PATIENT UNRESPONSIVE TO VERBAL STIMULI, PROTECTING AIRWAY, 100% ON RA.
--- NOTE | 2019-06-29 10:31 | SUR.PHASEI ---
1026 PATIENT TO OPS AT THIS TIME. NO DISTRESS. PATIENT STATES I WANT TO GO HOME
[2019-06-29] MEDS: ondansetron 2 mg/ML SDV 2 mL 4 MG IVP (10:35)
== END 2019-06-29 11:15 | disposition home or self-care (01) ==
PROVIDERS: Visit Provider Urology
PROC: (CPT 50590; principal; 2019-06-29 08:15)
DX: N20.0 Calculus of kidney (principal); N30.90 Cystitis, unspecified without hematuria; F17.210 Nicotine dependence, cigarettes, uncomplicated
CPT/HCPCS: 50590; 12345; 74018; 81025; 84703; 96374; 96375; J1100; J2001; J2405; J2704; J2710; J3010; J3490; J7030

== ENCOUNTER 2019-07-08 12:44 | Outpatient (CLI) | payer SELFPAY ==
--- NOTE | 2019-07-08 13:02 | XR_ITS ---
WS: [id number] XR KUB [id number] REASON FOR EXAM: CALCULUS OF KIDNEY FINDINGS: A stent remains in the left kidney extends down into the bladder. The calcified density noted previously is much smaller with only a fragment of calcium seen in the le ft kidney. The remaining abdomen shows nonspecific gas and fecal stasis. XR/XR KUB [id number] IMPRESSION: The pigtail catheter extends from the kidney to the bladder. The large stone described on previous exam of 06/29/2019 is no longer seen and o nly fragments are seen surrounding the end of the pigtail catheter.
== END 2019-07-08 12:45 | disposition home or self-care (01) ==
LOC: RAD 12:45
PROVIDERS: Visit Provider Urology
DX: N20.0 Calculus of kidney (principal); Z96.0 Presence of urogenital implants
CPT/HCPCS: 74018; 81001